=== PATIENT | female | born 1960 | race Caucasian/White ===

== ENCOUNTER → 2021-06-05 09:47 | Outpatient (BNVA) | payer OTHER, SELFPAY | PROVIDERS: Family Provider Family Medicine Geriatric Medicine; Visit Provider Nurse Practitioner Family | DX: J06.9 Acute upper respiratory infection, unspecified (principal); Z20.822 Contact with and (suspected) exposure to COVID-19 | CPT/HCPCS: 87635 ==

== ENCOUNTER 2021-06-12 08:06 | Outpatient (CLI) | payer OTHER, SELFPAY ==
[2021-06-12 09:02] VITALS: BP 130/84; PULSE 88; TEMP 35; O2SAT 95
[2021-06-12 10:18] VITALS: BP 133/84; PULSE 82; TEMP 36.6; O2SAT 94
[2021-06-12 11:09] VITALS: BP 115/80; PULSE 83; TEMP 36.4; O2SAT 98
--- NOTE | 2021-06-19 12:37 | DCPLANNER ---
manager cafe had message that patient received the monoclonal antibody infusion. manager cafe called to check on patient after receiving the infusion. Patient stated that before the infusion, she had a low grade fever, she was having aches and pains, she had a cough, she was tires, she had some dizziness. Patient stated that after the infusion, she was still dizzy, she did not have a cough, and she did not run a fever. Patient stated that overall she is feeling much better.
== END 2021-06-12 11:12 | disposition home or self-care (01) ==
PROVIDERS: Visit Provider Nurse Practitioner Family
DX: U07.1 COVID-19 (principal)
CPT/HCPCS: 96365

== ENCOUNTER 2021-12-27 13:43 | Emergency (ER) | payer OTHER, SELFPAY ==
[2021-12-27 13:52] VITALS: BP 130/84; PULSE 92; RESP 22; TEMP 36.8; O2SAT 96; BMI 33.6
--- NOTE | 2021-12-27 13:59 | CTR_ITS ---
PROCEDURE INFORMATION: Exam: CT Abdomen And Pelvis With Contrast Exam date and time: 12/27/2021 1:59 PM Age: 61 years old Clinical indication: Abdominal pain; Generalized; Additional info: Abd pain TECHNIQUE: Imaging protocol: Computed tomography of the abdomen and pelvis with contrast. Radiation optimization: All CT scans at this facility use at least one of these dose optimization techniques: automated exposure control; mA and/or kV adjustment per patient size (includes targeted exams where dose is matched to clinical indication); or iterative reconstruction. Contrast material: OMNI 300; Contrast volume: 95 ml; Contrast route: INTRAVENOUS (IV); COMPARISON: No relevant prior studies available. RADIATION DOSE METRICS: Total DLP (mGy-cm): 1599.8 FINDINGS: Lungs: Calcified granuloma left lung base. Liver: The liver is unremarkable in appearance. Gallbladder and bile ducts: The gallbladder is surgically absent. Pancreas: The pancreas is normal in appearance. No pancreatic duct dilatation. Spleen: Calcified granulomas are noted in the spleen. Adrenal glands: The adrenal glands appear within normal limits. Kidneys and ureters: 10 mm simple appearing cyst in the lower pole of the right kidney. The kidneys are otherwise unremarkable. Stomach and bowel: No acute gastric abnormality demonstrated. The small bowel is unremarkable as demonstrated. Diverticulosis of the sigmoid colon. There is mild stranding of the pericolonic fat which may indicate mild acute diverticulitis. No acute gastric abnormality demonstrated. There is a 4 cm duodenal diverticulum noted. Mild mural thickening and mucosal enhancement of the proximal/mid small bowel suggesting enteritis. No evidence of small bowel obstruction. Appendix: No evidence of appendicitis. Intraperitoneal space: No pneumoperitoneum. No ascites. Vasculature: No abdominal aortic aneurysm. Minimal atherosclerosis of the aorta noted. Lymph nodes: No pathologically enlarged lymph nodes. Urinary bladder: Unremarkable as visualized. Reproductive: Bilateral fat density adnexal lesions, consistent with ovarian dermoids. The right adnexal dermoid measures 5.8 cm. There is a 2nd, 4.3 cm dermoid in the cul-de-sac, also likely originating from the right ovary. Left ovarian 4 cm dermoid is seen anteriorly. Bones/joints: Unremarkable. No acute osseous abnormality. Soft tissues: Unremarkable. CT/CT abdomen pelvis w con* [id number] IMPRESSION: 1. Diverticulosis of the sigmoid colon. There is mild stranding of the pericolonic fat which may indicate mild acute diverticulitis in the proper clinical setting. No perforation or abscess. 2. Mild mural thickening and mucosal enhancement of the proximal/mid small bowel suggesting enteritis. No small bowel obstruction. 3. Bilateral fat density adnexal lesions, consistent with ovarian dermoids. No acute abnormality demonstrated, related to the dermoids. COMMENTS: Consistent with the [employer]'s Incidental Findings Committee white paper (J Am Dominick Radiol 2018): Any incidental renal lesion less than 1 cm or classified as too small to characterize, or any incidental cystic renal lesion characterized as simple-appearing, is likely benign. No follow-up imaging is recommended for these lesions per consensus recommendations based on imaging criteria.
--- NOTE | 2021-12-27 14:00 | ED_ITS ---
HPI - Abdominal Pain General: Chief Complaint: Abdominal Pain Stated Complaint: abdomen pain Time Seen by Provider: 12/27/21 13:56 Source: patient Mode of arrival: ambulatory Limitations: no limitations History of Present Illness: 61-year-old female states that she has been having lower abdominal pain since this morning. She states that its been increasing and is sharp and severe in nature. States it is worse in her left lower quadrant rates it an 8 out of 10. She denies any worsening improving factors she has had no vomiting or diarrhea denies any dysuria. MD elicited complaint: abdominal pain Associated Symptoms: Denies chills, dysuria and fever(s) Review of Systems Const: Denies: fever(s), chills, body aches or change in appetite Eyes: Denies: blurry vision or eye discomfort ENMT: Denies: throat pain or dental pain Card: Denies: chest pain Resp: Denies: dyspnea GI: Reports: abdominal pain : Denies: dysuria Musc: Denies: neck pain or back pain Skin/Breast: Denies: rash Neuro: Denies: headache(s) Psych: Denies: depression Kashif/Lymph: Denies: easy bruising All/Imm: Denies: urticaria PFSH ED PFSH: Social History Smoking and tobacco status: never smoked Physical Exam Const: COMMON NORMALS: no acute distress, patient oriented x3 and healthy appearing HENMT: COMMON NORMALS: normocephalic and atraumatic HEAD & SCALP: normocephalic and atraumatic Eye: COMMON NORMALS: Equal, round and reactive pupils present and EOMs intact bilaterally PUPIL: Yes Equal, round and reactive pupils present Neck/C-Spine: COMMON NORMALS: full ROM and supple Chest: COMMONS NORMALS: normal inspection of the chest and normal palpation of entire chest wall Resp: COMMON NORMALS: normal respiratory effort, No retractions, No use of accessory muscles and clear to auscultation bilaterally AUSCULTATION: clear to auscultation bilaterally Cardio: COMMON NORMALS: regular rate, regular rhythm and No murmurs present (Cardio) RATE: regular rate RHYTHM: regular rhythm GI: COMMON NORMALS: Normal to inspection, nondistended, normoactive bowel sounds present, Soft to palpation and no masses PALPATION: Yes Soft to palpation and Yes Tenderness to palpation present (GI) OTHER: Lower abdominal tenderness Extremity: COMMON NORMALS: normal to inspection and full ROM Neuro: COMMON NORMALS: patient oriented x3, moves all extremities and no focal motor deficits Psych: COMMON NORMALS: mental status grossly normal, Normal thought process present and cooperative THOUGHT PROCESS: Normal thought process present Skin: COMMON NORMALS: no rashes or lesions noted and no wounds GENERAL SKIN EXAM: no rashes or lesions noted Course Vital Signs: Vital signs: Vital Signs Temperature 98.4 F 12/27/21 15:31 Pulse Rate 88 12/27/21 15:31 Respiratory Rate 18 12/27/21 15:31 Blood Pressure 142/72 12/27/21 15:31 Pulse Oximetry 95 12/27/21 15:31 MDM - Abdominal Pain Medical Decision Making Patient presents here with abdominal pain likely caused from diverticulitis she has no signs of abscess or perforation white count is normal her pain is improved here we will place her on Cipro Flagyl I will and pain meds. She is to follow-up with surgery outpatient return if worsening. Lab Data : 12/27/21 14:20 12/27/21 14:20 Labs/Radiology: Radiology Impressions Abdomen/Pelvis CT 12/27/21 13:59 IMPRESSION: 1. Diverticulosis of the sigmoid colon. There is mild stranding of the pericolonic fat which may indicate mild acute diverticulitis in the proper clinical setting. No perforation or abscess. 2. Mild mural thickening and mucosal enhancement of the proximal/mid small bowel suggesting enteritis. No small bowel obstruction. 3. Bilateral fat density adnexal lesions, consistent with ovarian dermoids. No acute abnormality demonstrated, related to the dermoids. COMMENTS: Consistent with the [employer]'s Incidental Findings Committee white paper (J Am Dominick Radiol 2018): Any incidental renal lesion less than 1 cm or classified as too small to characterize, or any incidental cystic renal lesion characterized as simple-appearing, is likely benign. No follow-up imaging is recommended for these lesions per consensus recommendations based on imaging criteria. Laboratory Results WBC 13.7 10^3/uL (4.0-10.0) H 12/27/21 14:20 RBC 4.95 10^6/uL (4.1-5.3) 12/27/21 14:20 Hgb 13.9 g/dL (11.5-15.3) 12/27/21 14:20 Hct 43.8 % (37.0-47.0) 12/27/21 14:20 MCV 88.5 fl (81-99) 12/27/21 14:20 MCH 28.1 pg (28.0-34.0) 12/27/21 14:20 MCHC 31.7 g/dL (30.0-36.0) 12/27/21 14:20 RDW 13.8 % (12.1-15.1) 12/27/21 14:20 Plt Count 272 10^3/cmm (130-400) 12/27/21 14:20 MPV 9.2 fL (7.4-10.4) 12/27/21 14:20 Neut % (Auto) 83.7 % 12/27/21 14:20 Lymph % (Auto) 8.8 % 12/27/21 14:20 Lares % (Auto) 6.1 % 12/27/21 14:20 Eos % (Auto) 0.9 % 12/27/21 14:20 Baso % (Auto) 0.2 % 12/27/21 14:20 Neut # (Auto) 11.43 10^3/uL (1.8-7.7) H 12/27/21 14:20 Lymph # (Auto) 1.2 10^3/uL (0.8-4.8) 12/27/21 14:20 Lares # (Auto) 0.8 10^3/uL (0.2-0.9) 12/27/21 14:20 Eos # (Auto) 0.1 10^3/uL (0.0-0.8) 12/27/21 14:20 Baso # (Auto) 0.0 10^3/uL (0.0-0.1) 12/27/21 14:20 Nucleated RBC % (auto) 0 % 12/27/21 14:20 Nucleated RBCs # 0.0 /100WBC 12/27/21 14:20 Sodium 135 mmol/L (136-145) L 12/27/21 14:20 Potassium 4.1 mmol/L (3.5-5.1) 12/27/21 14:20 Chloride 102 mmol/L (98-107) 12/27/21 14:20 Carbon Dioxide 22 mmol/L (22-29) 12/27/21 14:20 Anion Gap 15.1 (5-19) 12/27/21 14:20 BUN 21 mg/dL (6-20) H 12/27/21 14:20 Creatinine 0.6 mg/dL (0.5-0.9) 12/27/21 14:20 GFR Calculation 102.3 mL/min (90-130) 12/27/21 14:20 Glucose 154 mg/dL (65-115) H 12/27/21 14:20 Calculated Osmolality 286 mOsm/kg (285-295) 12/27/21 14:20 Lactate 1.1 mmol/L (0.5-2.2) 12/27/21 14:45 Calcium 10.0 mg/dL (8.5-10.5) 12/27/21 14:20 Total Bilirubin 0.3 mg/dL (0.15-1.2) 12/27/21 14:20 AST 15 U/L (0-32) 12/27/21 14:20 ALT 19 U/L (0-33) 12/27/21 14:20 Alkaline Phosphatase 105 IU/L (35-105) 12/27/21 14:20 Total Protein 7.5 g/dL (6.6-8.7) 12/27/21 14:20 Albumin 4.3 g/dL (3.5-5.2) 12/27/21 14:20 Globulin 3.2 g/dL (1.3-4.6) 12/27/21 14:20 Lipase 24 U/L (13-60) 12/27/21 14:20 Discharge Plan Discharge Patient Disposition: Home Clinical Impression: Diverticulitis Condition: Stable Prescriptions: New hydrocodone-acetaminophen 5-325 mg tablet 1 tab PO Q6H PRN (Reason: pain) Qty: 14 0RF ondansetron 4 mg tablet,disintegrating 4 mg PO Q6H PRN (Reason: nausea and vomiting) Qty: 14 0RF Cipro 500 mg tablet 500 mg PO BID Qty: 14 0RF Flagyl 500 mg tablet 500 mg PO Q8H 7 Days Qty: 21 0RF No Action prednisone 5 mg tablet 5 mg PO DAILY 0RF Discharge Orders: Discharge ED (Routine); Ordered 12/27/21 Ordered By: Lei Noriega Referrals: Collin Krueger MD [Physician] - 1-3 days Discharge Diet: Advance as tolerated Discharge Activity: Resume usual activity Patient Instructions: Diverticulitis (ED), Opioid Safety Coding Level of Care Code ED Business Continuity Planner for Chg Fwd Exam Comprehensive
[2021-12-27 14:29] LABS: Basophils % 0.2 %; Eosinophils # 0.1 10^3/uL (0.0-0.8); Eosinophils % 0.9 %; Hematocrit 43.8 % (37.0-47.0); Hemoglobin 13.9 g/dL (11.5-15.3); Lymphocytes # 1.2 10^3/uL (0.8-4.8); Lymphocytes % 8.8 %; Mean Corpuscular HGB Conc 31.7 g/dL (30.0-36.0); Mean Corpuscular Hemoglobin 28.1 pg (28.0-34.0); Mean Corpuscular Volume 88.5 fl (81-99); Mean Platelet Volume 9.2 fL (7.4-10.4); Monocytes # 0.8 10^3/uL (0.2-0.9); Monocytes % 6.1 %; Neutrophils # 11.43 10^3/uL (1.8-7.7); Neutrophils % 83.7 %; Nucleated Red Blood Cells % 0 %; Platelet Count 272 10^3/cmm (130-400); Red Blood Count 4.95 10^6/uL (4.1-5.3); Red Cell Distribution Width 13.8 % (12.1-15.1); White Blood Count 13.7 10^3/uL (4.0-10.0)
[2021-12-27 14:39] VITALS: RESP 16
[2021-12-27] MEDS: HYDROmorphone 1 mg/mL INJ 1 mL IVP (14:39)
[2021-12-27] MEDS: ondansetron 2 mg/ML SDV 2 mL 4 MG IVP (14:40)
[2021-12-27] MEDS: sodium chloride 0.9% 1,000 ML 999 ML IV (14:40)
[2021-12-27] MEDS: iohexol 300 mg/mL 100 mL Btl IV (14:54)
[2021-12-27 14:56] LABS: Alanine Aminotransferase 19 U/L (0-33); Albumin Level 4.3 g/dL (3.5-5.2); Alkaline Phosphatase 105 IU/L (35-105); Anion Gap 15.1 (5-19); Aspartate Amino Transferase 15 U/L (0-32); Blood Urea Nitrogen 21 mg/dL (6-20); Carbon Dioxide 22 mmol/L (22-29); Chloride 102 mmol/L (98-107); Globulin 3.2 g/dL (1.3-4.6); Glomerular Filtration Rate 102.3 mL/min (90-130); Glucose 154 mg/dL (65-115); Lipase 24 U/L (13-60); Osmolality Calculated 286 mOsm/kg (285-295); Potassium 4.1 mmol/L (3.5-5.1); Sodium 135 mmol/L (136-145); Total Bilirubin 0.3 mg/dL (0.15-1.2); Total Protein 7.5 g/dL (6.6-8.7)
[2021-12-27 15:28] LABS: Lactate (Lactic Acid level) 1.1 mmol/L (0.5-2.2)
[2021-12-27 15:31] VITALS: BP 142/72; PULSE 88; RESP 18; TEMP 36.9; O2SAT 95
[2021-12-27 16:28] LABS: Add Urine Microscopic? YES; Bilirubin Urine Neg (Negative); Blood Urine Neg (Negative); Glucose Urine UA Norm (Normal); Ketones Urine Negative (Negative); Leukocyte Esterase Urine 1+ (Negative); Nitrate Urine Negative (Negative); Protein Urine Neg (Negative); Specific Gravity, Urine 1.005 (1.005-1.030); Urine Appearance Clear (CLEAR); Urine Color Straw (Yellow); Urobilinogen Urine Norm (Negative); pH Urine 5 (5-7)
[2021-12-27 16:30] LABS: Bacteria Urine TRACE /hpf
[2021-12-27 16:31] LABS: Add Urine Culture? No
--- NOTE | 2021-12-29 10:54 | DCPLANNER ---
Addendum entered by Trina Lim 01/01/22 14:07: accreditation manager was contacted by general surgery stating that when clinic called patient to schedule a follow up appointment, that patient was in the hospital in [facility] currently. No appointment scheduled at this time. Original Note: accreditation manager had message to schedule a follow up appointment for patient with general surgery. accreditation manager emailed patients information to Tabby Salcido and Angelica at [facility] General Surgery / ENT clinic. Patients information will be printed and reviewed. Clinic will call patient with appointment information.
== END 2021-12-27 16:00 | disposition home or self-care (01) ==
PROVIDERS: Emergency Provider Emergency Medicine
DX: K57.92 Diverticulitis of intestine, part unspecified, without perforation or abscess without bleeding (principal)
CPT/HCPCS: 74177; 80053; 81000; 81001; 83605; 83690; 85025; 96361; 96374; 96375; 99283; J1170; J2405; J7030; Q9967

== ENCOUNTER → 2023-11-05 13:20 | Outpatient (BNVA) | payer OTHER, SELFPAY | PROVIDERS: Visit Provider Registered Nurse Neonatal Intensive Care | DX: J02.9 Acute pharyngitis, unspecified (principal); U07.1 COVID-19 | CPT/HCPCS: 87400; 87426 ==

== ENCOUNTER → 2024-08-23 13:54 | Outpatient (BNVA) | payer OTHER, SELFPAY | PROVIDERS: PCP Family Medicine; Visit Provider Family Medicine | DX: E03.9 Hypothyroidism, unspecified (principal); E11.9 Type 2 diabetes mellitus without complications; R11.0 Nausea; M25.50 Pain in unspecified joint; G89.29 Other chronic pain; R53.83 Other fatigue | CPT/HCPCS: 80053; 82607; 83036; 84443; 85025; 86140 ==

== ENCOUNTER → 2024-11-27 14:39 | Outpatient (BNVA) | payer OTHER, SELFPAY | PROVIDERS: PCP Family Medicine; Visit Provider Family Medicine | DX: I73.00 Raynaud's syndrome without gangrene (principal); G89.29 Other chronic pain; R53.83 Other fatigue; R79.82 Elevated C-reactive protein (CRP) | CPT/HCPCS: 86160; 86162; 86235; 86255; 86376 ==

== ENCOUNTER → 2025-04-16 12:47 | Outpatient (BNVA) | payer OTHER, SELFPAY | PROVIDERS: PCP Family Medicine; Visit Provider Family Medicine | DX: E11.9 Type 2 diabetes mellitus without complications (principal); M54.16 Radiculopathy, lumbar region | CPT/HCPCS: 80053; 80061; 82607; 83036 ==

== ENCOUNTER 2025-06-19 13:46 | Outpatient (CLI) | payer SELFPAY ==
--- NOTE | 2025-06-19 13:45 | MR_ITS ---
WS: [id number] MRI LUMBAR SPINE NONCONTRAST TECHNIQUE: Sagittal T1, T2 and STIR imaging. Axial T1 and T2 imaging. CLINICAL INFORMATION: M54.16 - Radiculopathy, lumbar region COMPARISON: None. FINDINGS: Mild lumbar curve. No acute compression. Grade 2 anterolisthesis L5 on S1 measuring 12 mm. Shallow disc protrusions in the lower thoracic spine. L1-L2: Mild disc bulging with slight effacement of the ventral thecal sac. Mild facet arthropathy. Spinal canal and foramen are patent. L2-L3: Disc desiccation with slight retrolisthesis. Narrowing of the subarticular recess bilaterally. RIGHT foraminal protrusion with mild RIGHT foraminal narrowing. LEFT foramen is patent. Mild facet arthropathy. L3-L4: Mild annular bulging. Slight effacement of the ventral thecal sac. Mild RIGHT and no significant LEFT foraminal narrowing. Moderate facet arthropathy. L4-L5: Mild annular bulging. Tiny annular fissure. Spinal canal and foramen are patent. Mild facet arthropathy. Laminectomy defects. L5-S1: Grade 2 anterolisthesis L5 on S1. Spinal canal is patent. Disc desiccation. Spinal canal and foramen are patent. Advanced facet arthropathy. Visualized pelvic bony structures: Normal. Paravertebral soft tissues: Normal. Small RIGHT renal cyst. Partially visualized complex cystic lesion in the RIGHT adnexa with internal nodularity or debris. This appears unchanged since 2021. Previously suspected to represent dermoid. MR/MR lumbar spine wo con* [id number] IMPRESSION: 1. Mild lumbar curve. No acute compression. 2. Annular bulging L2-L3 and L3-L4 with narrowing of the bilateral subarticula r recess L2-3 and RIGHT subarticular recess L3-4. 3. Prior laminectomy defects L4-5. 4. Mild RIGHT L2-3 and RIGHT L3-4 foraminal narrowing with small foraminal pro trusions. 5. Advanced facet arthropathy L5-S1 with grade 2 anterolisthesis. 6. Partially visualized RIGHT ovarian dermoid similar in appearance to prior C T abdomen pelvis 12/27/2021 which demonstrated bilateral ovarian dermoids. Consi mavis surgical consultation as this can predispose to ovarian torsion considering large size. Today the partially visualized RIGHT ovarian dermoid measures appr oximately 5.2 x 5.2 cm. LEFT ovarian dermoid is not included on this study. Rec ommend follow-up CT abdomen pelvis to assess change
== END 2025-06-19 13:47 | disposition home or self-care (01) ==
LOC: RAD 13:48
PROVIDERS: PCP Family Medicine; Visit Provider Family Medicine
DX: M54.16 Radiculopathy, lumbar region (principal); M51.360 Other intervertebral disc degeneration, lumbar region with discogenic back pain only; M47.896 Other spondylosis, lumbar region; M43.16 Spondylolisthesis, lumbar region; N28.1 Cyst of kidney, acquired; N83.291 Other ovarian cyst, right side
CPT/HCPCS: 72148

== ENCOUNTER → 2025-09-19 14:55 | Outpatient (BNVA) | payer OTHER, SELFPAY | PROVIDERS: PCP Family Medicine; Visit Provider Obstetrics & Gynecology | DX: Z12.4 Encounter for screening for malignant neoplasm of cervix (principal) | CPT/HCPCS: 87624 ==

== ENCOUNTER → 2025-10-17 13:43 | Outpatient (BNVA) | payer OTHER, SELFPAY | PROVIDERS: PCP Family Medicine; Visit Provider Obstetrics & Gynecology | DX: R10.20 Pelvic and perineal pain unspecified side (principal); D27.9 Benign neoplasm of unspecified ovary | CPT/HCPCS: 76830 ==